=== PATIENT | male | born 1940 | race Caucasian/White ===

== ENCOUNTER 2017-01-23 23:12 | Observation (INO) ==
[2017-01-23] MEDS ORDERED: Aspirin 81 MG TAB.CHEW PO ONE (23:59)
[2017-01-24 00:02] LABS: Basophils % 0.6 %; Eosinophils # 0.1 K/mcL (0.0-0.6); Eosinophils % 1.6 %; Hematocrit 41.8 % (37.5-50.1); Hemoglobin 13.4 g/dL (12.9-16.9); Immature Granulocytes % 0.2 % (0-4); Lymphocytes # 0.9 K/mcL (0.6-4.6); Lymphocytes % 18.5 %; Mean Corpuscular HGB Conc 32.1 g/dL (31.6-35.5); Mean Corpuscular Hemoglobin 26.3 pg (28.0-33.3); Mean Platelet Volume 11.2 fL (9.4-12.4); Monocytes # 0.7 K/mcL (0.0-1.3); Monocytes % 14.3 %; Neutrophils # 3.2 K/mcL (1.6-8.9); Platelet Count 162 K/mcL (140-400); Red Cell Distribution Width 13.5 % (11.5-14.5); Segmented Neutrophils % 64.8 %
[2017-01-24] MEDS: Ipratropium/Albuterol Neb 3 ML IH ONE ×2 (00:02→00:11)
--- NOTE | 2017-01-24 00:02 | Emergency Department Note ---
Disposition Clinical Impression: ST segment changes on electrocardiogram Dyspnea Qualifiers: Dyspnea type: shortness of breath Qualified Code(s): R06.02 - Shortness of breath Disposition: Admitted As Inpatient Condition: Fair Referrals: NO,PCP [Primary Care Provider] - Forms: ED Satisfaction Letter SOB HPI - General Chief Complaint: ED Shortness of Breath/Dyspnea Stated Complaint: yovanny Time Seen by Provider: 01/23/17 23:31 Source: patient, family Mode of arrival: wheelchair Limitations: no limitations Nursing Notes Reviewed: Yes Vital Signs Reviewed: Yes - History of Present Illness Pt Subjective Complaint: shortness of breath Onset (ago): day(s) (3) Context: recent illness (cough, congestion) Severity: moderate Consistency/Duration: constant, gradually worsening Improves with: bronchodilators, upright position Worsens with: lying flat, coughing Known history of: COPD Associated symptoms: Reports: fever, cough, wheezing, sputum production, orthopnea, other ("abdomen feels bloated" per patient). Denies: chest pain, pain with inspiration, lower extremity pain, polyuria, polydipsia, parasthesias , palpitations, hemoptysis, diaphoresis, nausea/vomiting, syncope, abdominal pain, rash, sense of impending doom Treatment prior to arrival: oxygen (used his 's oxygen several times this week), bronchodilator Cough present: Yes Cough Description: Involuntary, Productive, Rattling, Wheezy Cough Frequency: Intermittent Sputum production: Yes Sputum Amount: Small Sputum Color: Yellow - Related Data Home oxygen amount: none (borrows 's O2 sometimes) Home Medications Medication Instructions Recorded Confirmed Albuterol Sulfate [Proair Hfa] 1 - 2 puff IH QID PRN 01/18/16 10/04/16 Buspirone HCl [Buspar] 5 mg PO BID 01/18/16 10/04/16 Finasteride [Proscar] 5 mg PO DAILY 01/18/16 10/04/16 Fluticasone Propionate Nasal 100 mcg NS DAILY 01/18/16 10/04/16 [Flonase] Fluticasone/Salmeterol [Advair 1 each IH BID 01/18/16 10/04/16 250-50 Diskus] Gabapentin [Neurontin] 400 mg PO TID 01/18/16 10/04/16 HYDROcodone/Acet 7.5/325 mg [[place] 1 tab PO TID PRN 01/18/16 10/04/16 7.5-325 mg] Levothyroxine [Synthroid] 25 mcg PO DAILY 01/18/16 10/04/16 Loratadine [Claritin] 10 mg PO DAILY PRN 01/18/16 10/04/16 Metformin HCl [Fortamet] 500 mg PO DAILY 01/18/16 10/04/16 Montelukast [Singulair] 10 mg PO DAILY 01/18/16 10/04/16 Omeprazole [PriLOSEC] 40 mg PO DAILY 01/18/16 10/04/16 Polyethylene Glycol 3350 [MiraLAX] 17 gm PO DAILY PRN 01/18/16 10/04/16 Albuterol Neb [Proventil Neb] 2.5 mg IH Q4HR PRN 10/04/16 10/04/16 Cholecalciferol (D-3) [Vitamin D] 1,000 unit PO DAILY 10/04/16 10/04/16 Cyclobenzaprine HCl 5 mg PO TID PRN 10/04/16 10/04/16 Simvastatin [Zocor] 40 mg PO HS 10/04/16 10/04/16 Tamsulosin [Flomax] 0.4 mg PO DAILY 10/04/16 10/04/16 Previous Rx's Medication Instructions Recorded TraMADol [Ultram] 50 mg PO TID PRN #90 tablet 01/20/16 HYDROcodone/Acet 5/325 mg [[place] 2 tab PO Q4H PRN #15 tablet 10/04/16 5-325 mg] Allergies Allergy/AdvReac Type Severity Reaction Status Date / Time hydrocortisone Allergy See Verified 10/04/16 10:40 [From Cortizone-10] Comments All systems ED: reviewed and negative except as stated. Constitutional: Reports: fever. Denies: chills, weakness, weight change, night sweats Eyes: Denies: eye discharge ENT ED: Denies: throat pain, congestion, dysphagia Cardiovascular: Reports: dyspnea on exertion, orthopnea. Denies: chest pain, palpitations, edema, syncope Respiratory: Reports: cough, dyspnea, wheezes, sputum production. Denies: hemoptysis, stridor Gastrointestinal: Denies: abdominal pain, nausea, vomiting, diarrhea, constipation Musculoskeletal: Denies: back pain, joint swelling, arthralgia Integumentary: Denies: rash Past Medical History - Past Medical History Attestation: Yes The following information was validated with the patient. Source: patient Medical history: Reports: arthritis, CHF, COPD, diabetes, hypertension, myocardial infarction Surgical history: Reports: no surgical history, angioplasty/stent Psychiatric history: Reports: anxiety - Social History Smoking Status: Former smoker Smokeless Tobacco Status: No Alcohol use: Reports: none Drug use: Reports: none Physical Exam - General Limitations: no limitations General appearance: alert, in no apparent distress - Head Head exam: atraumatic, normocephalic, normal inspection - Eye Eye exam: Present: normal appearance, PERRL. Absent: scleral icterus, conjunctival injection, periorbital swelling - ENT ENT exam: mucous membranes dry - Neck Neck exam: Present: normal inspection, full ROM, trachea midline. Absent: meningismus - Chest Chest inspection: Present: normal inspection, symmetric chest wall rise. Absent : tenderness - Respiratory Respiratory exam: Present: wheezes, prolonged expiratory phase, other (coarse rhonchi - bilateral). Absent: respiratory distress, stridor, accessory muscle use - Cardiovascular Cardiovascular exam: Present: regular rate, normal rhythm, normal heart sounds - Abdominal Exam Abdominal exam: Present: soft, Non-Tender, distention, normal bowel sounds, hernia (umbilical). Absent: guarding, rebound, rigidity - Extremities Exam Extremities exam: Present: normal inspection, full ROM. Absent: pedal edema, calf tenderness - Back Exam Back exam: Present: normal inspection - Neurological Exam Neurological exam: Present: alert, oriented X3, CN II-XII intact - Psychiatric Psychiatric exam: Present: normal affect, normal mood - Skin Skin exam: Present: warm, dry, intact, normal color Course Course Narrative: Patient presents with two of his sons for evaluation of trouble breathing. He denies pain. He has had a productive cough and has felt feverish. He has a hx of COPD and has used his inhalers more than usual over the past few days. He also mentions abd distension when asked about it. He denies NVD or constipation. He has no Hx of DVT or PE and no risk factors for this. Vitals show low O2 sats and low grade fever. Will check labs, EKG, CXR, and treat symptoms. ECG shows diffuse ST depression - new compared with 01/2016. Patient is unsure if he has had cardiac stents placed or not. He has had stents in legs. PCI shows cath reports from July and Aug but unable to view the reports. Will admit patient for rule out once labs and xray results are back. Case discussed with Dr. Balderas. He has seen the patient and agrees with the assessment and plan. Patient has been accepted for admission by the hospitalist. - Reevaluation(s) Reevaluation #1: Sats better, feeling better, still no pain. Time: 00:39 Vital Signs Temperature 99.7 F H 01/23/17 23:22 Pulse Rate 80 01/23/17 23:22 Respiratory Rate 20 01/23/17 23:22 Blood Pressure 165/82 01/23/17 23:22 O2 Sat by Pulse Oximetry 91 L 01/23/17 23:22 Temperature 99.7 F H 01/23/17 23:22 Pulse Rate 71 01/24/17 00:14 Respiratory Rate 20 01/24/17 00:14 Blood Pressure 139/64 01/24/17 00:14 O2 Sat by Pulse Oximetry 98 01/24/17 00:14 Oxygen Delivery Oxygen Delivery Aerosol Mask Shortness of Breath/Dyspnea - Differential Diagnosis Likely: acute exacerbation of chronic obstructive airways disease, congestive heart failure, pneumonia - Medical Records Medical records reviewed: Yes I reviewed the patient's medical records. - Lab Data Lab results reviewed: Yes I reviewed the patient's lab results. Lab results narrative: Laboratory Last Values WBC 5.0 K/mcL (4.3-11.1) 01/23/17 23:53 RBC 5.10 M/mcL (4.19-5.50) 01/23/17 23:53 Hgb 13.4 g/dL (12.9-16.9) 01/23/17 23:53 Hct 41.8 % (37.5-50.1) 01/23/17 23:53 MCV 82.0 fL (83.0-100.0) L 01/23/17 23:53 MCH 26.3 pg (28.0-33.3) L 01/23/17 23:53 MCHC 32.1 g/dL (31.6-35.5) 01/23/17 23:53 RDW 13.5 % (11.5-14.5) 01/23/17 23:53 Plt Count 162 K/mcL (140-400) 01/23/17 23:53 MPV 11.2 fL (9.4-12.4) 01/23/17 23:53 Immature Gran % 0.2 % (0-4) 01/23/17 23:53 Seg Neutrophils % 64.8 % 01/23/17 23:53 Lymphocytes % 18.5 % 01/23/17 23:53 Monocytes % 14.3 % 01/23/17 23:53 Eosinophils % 1.6 % 01/23/17 23:53 Basophils % 0.6 % 01/23/17 23:53 Neutrophils # 3.2 K/mcL (1.6-8.9) 01/23/17 23:53 Lymphocytes # 0.9 K/mcL (0.6-4.6) 01/23/17 23:53 Monocytes # 0.7 K/mcL (0.0-1.3) 01/23/17 23:53 Eosinophils # 0.1 K/mcL (0.0-0.6) 01/23/17 23:53 Basophils # 0.0 K/mcL (0.0-0.2) 01/23/17 23:53 Immature Plt Fraction 6.0 % (1.1-6.1) 01/23/17 23:53 PT 12.2 Seconds (9.4-12.1) H 01/23/17 23:53 INR 1.1 01/23/17 23:53 APTT 33.1 Seconds (26.0-36.0) 01/23/17 23:53 Sodium 135 mEq/L (136-145) L 01/23/17 23:53 Potassium 4.6 mEq/L (3.5-4.5) H 01/23/17 23:53 Chloride 100 mEq/L (98-109) 01/23/17 23:53 Carbon Dioxide 27 mEq/L (19-29) 01/23/17 23:53 BUN 13 mg/dL (8-26) 01/23/17 23:53 Creatinine 1.11 mg/dL (0.72-1.25) 01/23/17 23:53 Est GFR ( Amer) > 60 (> 60) 01/23/17 23:53 Est GFR (Non-Af Amer) > 60 (> 60) 01/23/17 23:53 BUN/Creatinine Ratio 12 (6-26) 01/23/17 23:53 Glucose 121 mg/dL (70-99) H 01/23/17 23:53 Calculated Osmolality 281 (280-300) 01/23/17 23:53 Calcium 9.6 mg/dL (8.6-10.8) 01/23/17 23:53 Total Bilirubin 0.5 mg/dL (0.2-1.2) 01/23/17 23:53 Direct Bilirubin 0.2 mg/dL (0.0-0.5) 01/23/17 23:53 Indirect Bilirubin 0.3 mg/dL (0.0-1.2) 01/23/17 23:53 AST 19 Units/L (5-34) 01/23/17 23:53 ALT 18 Units/L (0-55) 01/23/17 23:53 Alkaline Phosphatase 78 Units/L (38-126) 01/23/17 23:53 Troponin I 0.03 ng/mL (0-0.03) 01/23/17 23:53 B-Natriuretic Peptide 23 pg/mL (0-100) 01/23/17 23:53 Serum Total Protein 7.2 g/dL (6.0-8.3) 01/23/17 23:53 Albumin 4.1 g/dL (3.5-5.0) 01/23/17 23:53 Globulin 3.1 g/dL (2.4-3.5) 01/23/17 23:53 Albumin/Globulin Ratio 1.3 (1.1-2.2) 01/23/17 23:53 Result diagrams: 01/23/17 23:53 01/23/17 23:53 Lab Results 01/23/17 01/23/17 01/23/17 Range/Units 23:53 23:53 23:53 WBC 5.0 (4.3-11.1) K/mcL RBC 5.10 (4.19-5.50) M/mcL Hgb 13.4 (12.9-16.9) g/dL Hct 41.8 (37.5-50.1) % MCV 82.0 L (83.0-100.0) fL MCH 26.3 L (28.0-33.3) pg MCHC 32.1 (31.6-35.5) g/dL RDW 13.5 (11.5-14.5) % Plt Count 162 (140-400) K/mcL MPV 11.2 (9.4-12.4) fL Immature Gran % 0.2 (0-4) % Seg Neutrophils % 64.8 % Lymphocytes % 18.5 % Monocytes % 14.3 % Eosinophils % 1.6 % Basophils % 0.6 % Neutrophils # 3.2 (1.6-8.9) K/mcL Lymphocytes # 0.9 (0.6-4.6) K/mcL Monocytes # 0.7 (0.0-1.3) K/mcL Eosinophils # 0.1 (0.0-0.6) K/mcL Basophils # 0.0 (0.0-0.2) K/mcL Immature Plt Fraction 6.0 (1.1-6.1) % PT (9.4-12.1) Seconds INR APTT (26.0-36.0) Seconds Sodium 135 L (136-145) mEq/L Potassium 4.6 H (3.5-4.5) mEq/L Chloride 100 (98-109) mEq/L Carbon Dioxide 27 (19-29) mEq/L BUN 13 (8-26) mg/dL Creatinine 1.11 (0.72-1.25) mg/dL Est GFR ( Amer) > 60 (> 60) Est GFR (Non-Af Amer) > 60 (> 60) BUN/Creatinine Ratio 12 (6-26) Glucose 121 H (70-99) mg/dL Calculated Osmolality 281 (280-300) Calcium 9.6 (8.6-10.8) mg/dL Total Bilirubin 0.5 (0.2-1.2) mg/dL Direct Bilirubin 0.2 (0.0-0.5) mg/dL Indirect Bilirubin 0.3 (0.0-1.2) mg/dL AST 19 (5-34) Units/L ALT 18 (0-55) Units/L Alkaline Phosphatase 78 (38-126) Units/L Troponin I 0.03 (0-0.03) ng/mL B-Natriuretic Peptide (0-100) pg/mL Serum Total Protein 7.2 (6.0-8.3) g/dL Albumin 4.1 (3.5-5.0) g/dL Globulin 3.1 (2.4-3.5) g/dL Albumin/Globulin Ratio 1.3 (1.1-2.2) 01/23/17 01/23/17 Range/Units 23:53 23:53 WBC (4.3-11.1) K/mcL RBC (4.19-5.50) M/mcL Hgb (12.9-16.9) g/dL Hct (37.5-50.1) % MCV (83.0-100.0) fL MCH (28.0-33.3) pg MCHC (31.6-35.5) g/dL RDW (11.5-14.5) % Plt Count (140-400) K/mcL MPV (9.4-12.4) fL Immature Gran % (0-4) % Seg Neutrophils % % Lymphocytes % % Monocytes % % Eosinophils % % Basophils % % Neutrophils # (1.6-8.9) K/mcL Lymphocytes # (0.6-4.6) K/mcL Monocytes # (0.0-1.3) K/mcL Eosinophils # (0.0-0.6) K/mcL Basophils # (0.0-0.2) K/mcL Immature Plt Fraction (1.1-6.1) % PT 12.2 H (9.4-12.1) Seconds INR 1.1 APTT 33.1 (26.0-36.0) Seconds Sodium (136-145) mEq/L Potassium (3.5-4.5) mEq/L Chloride (98-109) mEq/L Carbon Dioxide (19-29) mEq/L BUN (8-26) mg/dL Creatinine (0.72-1.25) mg/dL Est GFR ( Amer) (> 60) Est GFR (Non-Af Amer) (> 60) BUN/Creatinine Ratio (6-26) Glucose (70-99) mg/dL Calculated Osmolality (280-300) Calcium (8.6-10.8) mg/dL Total Bilirubin (0.2-1.2) mg/dL Direct Bilirubin (0.0-0.5) mg/dL Indirect Bilirubin (0.0-1.2) mg/dL AST (5-34) Units/L ALT (0-55) Units/L Alkaline Phosphatase (38-126) Units/L Troponin I (0-0.03) ng/mL B-Natriuretic Peptide 23 (0-100) pg/mL Serum Total Protein (6.0-8.3) g/dL Albumin (3.5-5.0) g/dL Globulin (2.4-3.5) g/dL Albumin/Globulin Ratio (1.1-2.2) - Radiology Data Radiology results reviewed: Yes I reviewed the patient's radiology results. Chest X-Ray 01/23/17 23:31 IMPRESSION: Negative portable chest. D/ / Carlos Smith MD / Carlos Smith MD Interpreting Provider: Carlos Smith MD - EKG Data EKG attestation: Yes I reviewed and interpreted this EKG. EKG shows normal: Reports: sinus rhythm Rate: Reports: normal Rhythm: Reports: NSR [place]/QRS: Reports: normal ST segment depression in: Reports: v4, v5 When compared to previous EKG there are: changes noted Interpretation: Reports: other (New ST depression) - Core Measures AMI Core Measures Followed: Yes Measure Exclusions: not indicated (no pain) Attestation Statement - Attestation Attestation: I examined this patient and my medical decision-making was reviewed with the PA. I agree with the documented findings, disposition and treatment plan as described except to the extent set forth below. Presentation most c/w COPD exacerbation +/- pneumonia. However, pt is a vasculopath and has inferolateral ST depression that is new in some leads and more pronounced in others when compared to prior EKG from a year ago. Diffuse wheezing/rhonchi with decreased BS on right relative to left, no respiratory distress. Treating with nebulizers, ASA given, awaiting CXR/labs. Pt will require admission.
[2017-01-24 00:07] LABS: INR 1.1; Prothrombin Time 12.2 Seconds (9.4-12.1)
[2017-01-24] MEDS ORDERED: Ipratropium/Albuterol Neb 3 ML ONE (00:08)
[2017-01-24 00:10] LABS: Activated Partial Thrombo Time 33.1 Seconds (26.0-36.0)
[2017-01-24 00:16] LABS: Alanine Aminotransferase 18 Units/L (0-55); Albumin 4.1 g/dL (3.5-5.0); Albumin/Globulin Ratio 1.3 (1.1-2.2); Alkaline Phosphatase 78 Units/L (38-126); Aspartate Amino Transferase 19 Units/L (5-34); BUN/Creatinine Ratio 12 (6-26); Bilirubin,Direct 0.2 mg/dL (0.0-0.5); Bilirubin,Indirect 0.3 mg/dL (0.0-1.2); Bilirubin,Total 0.5 mg/dL (0.2-1.2); Blood Urea Nitrogen 13 mg/dL (8-26); Calcium 9.6 mg/dL (8.6-10.8); Carbon Dioxide 27 mEq/L (19-29); Chloride 100 mEq/L (98-109); Globulin 3.1 g/dL (2.4-3.5); Glucose 121 mg/dL (70-99); Osmolality,Calculated 281 (280-300); Potassium 4.6 mEq/L (3.5-4.5); Sodium 135 mEq/L (136-145); Total Protein 7.2 g/dL (6.0-8.3); eGFR For African Americans > 60 (> 60); eGFR For Non-African Americans > 60 (> 60)
[2017-01-24] MEDS ORDERED: Albuterol 2.5 MG/3 ML NEBULIZER IH STA (00:43)
[2017-01-24] MEDS ORDERED: CefTRIAXone 1,000 MG VIAL ONE (03:17)
[2017-01-24] MEDS ORDERED: 0.9 % Sodium Chloride 1,000 ML ONE (03:17)
[2017-01-24] MEDS ORDERED: Azithromycin 500 MG VIAL IVPB ONE (03:17)
[2017-01-24] MEDS ORDERED: D5% in Water (Mini-Bag+) 100 ML IVPB ONE (03:20)
[2017-01-24] MEDS ORDERED: D5% in Water 250 ML ONE (03:21)
[2017-01-24] MEDS ORDERED: Ipratropium/Albuterol Neb 3 ML AER PRN (05:15)
[2017-01-24] MEDS ORDERED: Ondansetron 4 MG/2 ML VIAL IVP PRN (05:16)
[2017-01-24] MEDS ORDERED: *HR* HYDROcodone/Acet 7.5/325 mg TABLET PO PRN (05:16)
[2017-01-24] MEDS ORDERED: *HR* Morphine 2 MG/ML SYRINGE IV PRN (05:16)
[2017-01-24] MEDS ORDERED: Dextrose Gel 15 GM PO PRN ×2 (05:19)
[2017-01-24] MEDS ORDERED: D5% in Water 1,000 ML IV PRN (05:19)
[2017-01-24] MEDS ORDERED: *HR* Dextrose 50 % in Water (Syg) 50 ML SYRINGE IVP PRN (05:19)
[2017-01-24] MEDS: *HR* Heparin 5,000 UNIT/ML VIAL SQ SCH ×2 (05:50→17:43)
[2017-01-24 06:24] LABS: Basophils % 0.6 %; Eosinophils # 0.1 K/mcL (0.0-0.6); Eosinophils % 1.3 %; Hematocrit 37.2 % (37.5-50.1); Hemoglobin 11.8 g/dL (12.9-16.9); Immature Granulocytes % 0.6 % (0-4); Immature Platelets 7.7 % (1.1-6.1); Lymphocytes % 21.6 %; Mean Corpuscular HGB Conc 31.7 g/dL (31.6-35.5); Mean Corpuscular Hemoglobin 26.6 pg (28.0-33.3); Mean Corpuscular Volume 83.8 fL (83.0-100.0); Mean Platelet Volume 12.2 fL (9.4-12.4); Monocytes # 0.5 K/mcL (0.0-1.3); Neutrophils # 3.1 K/mcL (1.6-8.9); Platelet Count 162 K/mcL (140-400); Red Blood Count 4.44 M/mcL (4.19-5.50); Red Cell Distribution Width 13.7 % (11.5-14.5); Segmented Neutrophils % 64.9 %
[2017-01-24 06:29] LABS: Alanine Aminotransferase 16 Units/L (0-55); Alkaline Phosphatase 66 Units/L (38-126); Aspartate Amino Transferase 17 Units/L (5-34); BUN/Creatinine Ratio 10 (6-26); Bilirubin,Total 0.3 mg/dL (0.2-1.2); Blood Urea Nitrogen 16 mg/dL (8-26); Carbon Dioxide 25 mEq/L (19-29); Chloride 100 mEq/L (98-109); Magnesium 1.5 mg/dL (1.6-2.6); Sodium 137 mEq/L (136-145); eGFR For African Americans 51 (> 60); eGFR For Non-African Americans 42 (> 60)
[2017-01-24] MEDS: Insulin LISPRO 300 UNITS/3 ML VIAL SQ SCH ×3 (08:03→17:36)
[2017-01-24] MEDS: Budesonide/Formoterol 80/4.5 MDI IH SCH ×2 (08:06→19:55)
--- NOTE | 2017-01-24 13:23 | ECHO - Doppler Report ---
Echocardiogram Name: Ashkan Turner Date of Study: 01/24/2017 Date: 1940 Ht: 65.0 in Medical Record#: [id number] Age: 76 Wt: 190.0 lb Gender: Male BSA: 1.94 Order #: [id number] Location: [facility] Room #: 3B35 Reading Physician: Moses Reyes MD, [facility] Gyroscopic Instrument Tester: Christopher Olivas RN Ordering Physician: Wily Sun MD Primary Physician: [facility] Indications: Shortness of breath Impressions: Normal left ventricular systolic function, LVEF 60%. Moderate left ventricular diastolic dysfunction. Normal right ventricular size and function. Mildly dilated left atrium. No significant valvular dysfunction. Unable to estimate RVSP due to lack of TR jet. Left Ventricular Wall Motion: Rest Echo Findings All wall segments showed normal motion. Findings: Study Quality * Suboptimal echo windows. ECG Findings * Normal sinus rhythm. Left Ventricle * Normal left ventricular systolic function, LVEF 60%. * Normal LV chamber size and wall thickness. * Moderate left ventricular diastolic dysfunction. Right Ventricle * Normal right ventricular size and function. Left Atrium * Mildly dilated left atrium. Right Atrium * Normal right atrial size. Interatrial Septum * Lipomatous interatrial septum. Aorta * Normally sized aortic root. Pericardium * There is no pericardial effusion present. IVC * The IVC is borderline dilated. Aortic Valve * Aortic valve not well visualized. * No aortic stenosis. * No aortic regurgitation. Mitral Valve * Normal mitral valve structure. * No mitral stenosis. * No mitral regurgitation. Tricuspid Valve * Normal tricuspid valve structure. * No tricuspid stenosis. * Trace tricuspid regurgitation. * Unable to estimate RVSP due to lack of TR jet. Pulmonic Valve * Pulmonic valve not well visualized. * No pulmonic stenosis. * No pulmonic regurgitation. History Hypertension Diabetes Hypercholesteremia Years 25 Packs 2 Family History of CAD Measurements: BP: 111/ 58 2D Normal Values RVIDd: 2.65 cm IVSd: 1.00 cm 0.6 - 1.0 cm LVIDd: 4.89 cm 3.7 - 5.6 cm LVPWd: 1.00 cm 0.6 - 1.1 cm LVIDs: 3.43 cm 1.5 - 3.6 cm AO: 3.20 cm < 4.0 cm %FS: 29.90 cm >25 % LA volume: 69 Mitral Valve Peak E:1.11 m/sec Peak A:1.04 m/sec E/A Ratio:1.1 Updated by Moses Reyes MD, [facility] on 01/24/2017 1:17:43 PM electronically signed on 01/24/2017 1:18:24 PM with status of Final Wall Motion Ocoper: 1=Normal, 2=Hypokinesis, 3=Akinesis, 4=Dyskinesis, 5=Aneurysmal, 6=Hyperkinetic, X=Not Visualized (Blank)=Missing
--- NOTE | 2017-01-24 15:26 | Internal Med Progress Note ---
Date of Encounter: 01/24/17 Time of Encounter: 09:30 - Assessment and plan (1) COPD exacerbation Current Visit: Yes Status: Acute Assessment and plan: Patient stating shortness of breath is improving. On examination, patient with coarse breath sounds throughout and a wet cough. Will add mucolytic's, duonebs , and PO prednisone. (2) Chronic pain Current Visit: Yes Status: Chronic Assessment and plan: Patient stating he has chronic pain to his hips and his back. He states that he just recently left his old primary care provider approximately 2 months ago because she gradually weaned him off his pain medication and made him go see a pain specialist who insisted upon injecting him rather than giving him pills. He states he has a new primary care provider who is also a pain management provider in [place]. He does not know the name of this PCP. He is requesting pain medication for his chronic pain, he was informed that he will need to follow up outpatient for chronic issues. (3) ST segment changes on electrocardiogram Current Visit: Yes Status: Chronic Assessment and plan: Nonacute (4) CAD (coronary artery disease) Current Visit: No Status: Chronic Assessment and plan: Patient has denied chest pain since admission. (5) Chronic kidney disease, stage II (mild) Current Visit: No Status: Chronic Assessment and plan: Consistent with his baseline. Patient fluctuates between normal renal functioning and stage II. We will continue to trend. (6) Diabetes mellitus Current Visit: No Status: Chronic Assessment and plan: Controlled with a recent A1c of 6.4%. Continue sliding scale while admitted. Qualifiers: Diabetes mellitus type: type 2 Diabetes mellitus complication status: without complication Diabetes mellitus extermination inspector insulin use: without fpc use Qualified Code(s): E11.9 - Type 2 diabetes mellitus without complications (7) Hyperkalemia Current Visit: No Status: Acute Assessment and plan: Likely resolve, will recheck in a.m. (8) Elevated troponin Current Visit: Yes Status: Resolved Assessment and plan: Mildly elevated at 0.05 and trended back down to 0.04. Patient has denied chest pain since admission. Do not suspect ACS. - Subjective Interval history: Patient seen and examined. On examination, patient is sitting upright on the side of his bed eating breakfast. He complains of pain into his hips and legs that he states is normal for him. He states his shortness of breath is improving. He is requesting pain medication. - Constitutional Vitals: Temp Pulse Resp BP Pulse Ox 98.7 F 69 16 136/69 92 L 01/24/17 15:03 01/24/17 15:03 01/24/17 15:03 01/24/17 15:03 01/24/17 15:03 General appearance: Present: mild distress, A&O X 3, pleasant, answers questions appropriately - Head Head exam: Present: atraumatic, normocephalic - Eye Eye exam: Present: PERRL, conjuntiva pink, sclera anicteric Pupils: Present: PERRL - Neck Neck exam general surgery: Present: supple, trachea midline. Absent: lymphadenopathy - Respiratory Respiratory exam: Present: accessory muscle use, decreased breath sounds, respiratory distress, rhonchi. Absent: rales, wheezes - Cardiovascular Cardiovascular exam: Present: RRR, +S1, +S2. Absent: diastolic murmur, gallop, rubs, systolic murmur - GI/Abdominal GI/Abdominal exam: Present: normal bowel sounds, soft, no peritoneal signs. Absent: distended, tenderness - Extremities Exam Extremities exam: Present: warm, radial pulses palpable and symetrical. Absent : calf tenderness, cyanotic, pedal edema - Neurological Exam Neurological exam: Present: alert, CN II-XII intact, oriented X3, no focal deficits, strengths equal and symetr throughout. Absent: pronater drift, facial droop, speech deficit - Skin Skin exam: Present: dry, intact, normal color, warm Internal Medicine: Result - Labs CBC & Chem 7: 01/24/17 04:00 01/24/17 04:00 Labs: Short CBC 01/24/17 Range/Units 04:00 WBC 4.7 (4.3-11.1) K/mcL Hgb 11.8 L D (12.9-16.9) g/dL Hct 37.2 L (37.5-50.1) % Plt Count 162 (140-400) K/mcL Neutrophils # 3.1 (1.6-8.9) K/mcL BMP 01/24/17 04:00 Sodium 137 Chloride 100 Carbon Dioxide 25 BUN 16 Creatinine 1.62 H Calcium 9.0 Cardiac Enzymes 01/24/17 01/24/17 Range/Units 04:00 09:25 Troponin I 0.05 H* 0.04 H* (0-0.03) ng/mL Liver Function 01/24/17 Range/Units 04:00 Total Bilirubin 0.3 (0.2-1.2) mg/dL AST 17 (5-34) Units/L ALT 16 (0-55) Units/L Alkaline Phosphatase 66 (38-126) Units/L - ABG Interpretation ABG results: PT/INR, D-dimer PT 12.2 Seconds (9.4-12.1) H 01/23/17 23:53 Consult Discharge Plan - Plan Referrals: NO,PCP [Primary Care Provider] -
[2017-01-24] MEDS: Ipratropium/Albuterol Neb 3 ML IH SCH ×2 (16:33→19:55)
[2017-01-24] MEDS: predniSONE 20 MG TABLET PO SCH (17:42)
--- NOTE | 2017-01-24 19:20 | Electrocardiograph Report ---
[place] [address] Test Date: 2017-01-23 Pat Name: Ashkan Turner Department: 104 Room: 3B Gender: M Prototyper: : 1940 Requested By: Naa Gee Order Number: [id number] Reading MD: Michael Roldan MD Measurements Intervals Elliott Rate: 77 P: 71 OR: 157 QRS: 85 QRSD: 96 T: 70 QT: 337 QTc: 369 Interpretive Statements SINUS RHYTHM WITH PACS Electronically Signed On 01-24-2017 19:18:34 EST by Michael Roldan MD
[2017-01-24] MEDS ORDERED: Insulin LISPRO 300 UNITS/3 ML VIAL SQ SCH (21:00)
[2017-01-24] MEDS: traMADol 50 MG TABLET PO PRN (21:13)
[2017-01-24] MEDS: *HR* HYDROcodone/Acet 7.5/325 mg TABLET PO PRN (23:58)
[2017-01-25] MEDS: Ipratropium/Albuterol Neb 3 ML IH SCH ×4 (00:14→11:31)
[2017-01-25] MEDS ORDERED: Azithromycin 500 MG in D5% in Water 250 ML IVPB SCH (03:00)
[2017-01-25] MEDS: traMADol 50 MG TABLET PO PRN (04:37)
[2017-01-25 05:07] LABS: BUN/Creatinine Ratio 20 (6-26); Blood Urea Nitrogen 23 mg/dL (8-26); Carbon Dioxide 23 mEq/L (19-29); Chloride 100 mEq/L (98-109); Glucose 224 mg/dL (70-99); Osmolality,Calculated 285 (280-300); Sodium 132 mEq/L (136-145); eGFR For African Americans > 60 (> 60); eGFR For Non-African Americans > 60 (> 60)
[2017-01-25] MEDS: *HR* Heparin 5,000 UNIT/ML VIAL SQ SCH (06:16)
[2017-01-25 07:24] VITALS: BP 112/55
[2017-01-25] MEDS: Budesonide/Formoterol 80/4.5 MDI IH SCH (07:56)
[2017-01-25] MEDS: predniSONE 20 MG TABLET PO SCH (08:10)
[2017-01-25] MEDS: Insulin LISPRO 300 UNITS/3 ML VIAL SQ SCH ×2 (08:11→12:25)
[2017-01-25] MEDS: *HR* HYDROcodone/Acet 7.5/325 mg TABLET PO PRN (08:19)
--- NOTE | 2017-01-25 13:32 | Discharge Summary ---
Date of Encounter: 01/25/17 Time of Encounter: 10:30 - Discharge Diagnosis (1) COPD exacerbation Priority: Primary Status: Resolved Comments: Patient denies shortness of breath above his normal day of discharge, follow-up outpatient (2) Chronic pain Priority: Secondary Status: Chronic Comments: Patient continually brought up his chronic pain and requested pain meds continually during this admission. In review of his [facility] report, he was written 30 day supply of tramadol and 01/16/17. Follow up outpatient for chronic pain management. (3) ST segment changes on electrocardiogram Priority: Secondary Status: Chronic Comments: Nonacute, follow-up outpatient (4) CAD (coronary artery disease) Priority: Secondary Status: Chronic (5) Chronic kidney disease, stage II (mild) Priority: Secondary Status: Chronic Comments: Consistent with his baseline. Patient fluctuates between normal renal functioning and stage II. Normal functioning on day of discharge, follow-up outpatient (6) Diabetes mellitus Priority: Secondary Status: Chronic Comments: Controlled with a recent A1c of 6.4%. Follow-up outpatient Qualifiers: Diabetes mellitus type: type 2 Diabetes mellitus complication status: without complication Diabetes mellitus ad terminal makeup operator insulin use: without correction use Qualified Code(s): E11.9 - Type 2 diabetes mellitus without complications (7) Hyperkalemia Priority: Primary Status: Acute Comments: Recommend further follow-up and trending outpatient and possible changing his lisinopril to another class at the discretion of his primary care team (8) Elevated troponin Priority: Primary Status: Resolved Comments: Adynamic, mild, trended back down. Suspect demand ischemia. Mild acute kidney injury while admitted that resolved. Do not suspect ACS. Clinical presentation more consistent with COPD exacerbation. - Discharge Medications Prescriptions: GuaiFENesin ER [Mucinex] 600 mg PO BID #10 tbbp.12hr Levofloxacin 750 mg PO DAILY #5 tablet PredniSONE 40 mg PO DAILY #6 tablet Home Medications: Albuterol Sulfate [Proair Hfa] 1 - 2 puff IH QID PRN 01/18/16 [History] Buspirone HCl [Buspar] 5 mg PO BID 01/18/16 [History] Finasteride [Proscar] 5 mg PO DAILY 01/18/16 [History] Fluticasone Propionate Nasal [Flonase] 100 mcg NS DAILY 01/18/16 [History] Fluticasone/Salmeterol [Advair 250-50 Diskus] 1 each IH BID 01/18/16 [History] Gabapentin [Neurontin] 400 mg PO TID 01/18/16 [History] Levothyroxine [Synthroid] 25 mcg PO DAILY 01/18/16 [History] Loratadine [Claritin] 10 mg PO DAILY PRN 01/18/16 [History] Metformin HCl [Fortamet] 500 mg PO DAILY 01/18/16 [History] Montelukast [Singulair] 10 mg PO DAILY 01/18/16 [History] Omeprazole [PriLOSEC] 40 mg PO DAILY 01/18/16 [History] Polyethylene Glycol 3350 [MiraLAX] 17 gm PO DAILY PRN 01/18/16 [History] TraMADol [Ultram] 50 mg PO TID PRN #90 tablet 01/20/16 [Rx] Albuterol Neb [Proventil Neb] 2.5 mg IH Q4HR PRN 10/04/16 [History] Cholecalciferol (D-3) [Vitamin D] 1,000 unit PO DAILY 10/04/16 [History] Cyclobenzaprine HCl 5 mg PO TID PRN 10/04/16 [History] Simvastatin [Zocor] 40 mg PO HS 10/04/16 [History] Tamsulosin [Flomax] 0.4 mg PO DAILY 10/04/16 [History] Lisinopril [Zestril] 10 mg PO DAILY 01/24/17 [History] GuaiFENesin ER [Mucinex] 600 mg PO BID #10 tbbp.12hr 01/25/17 [Rx] Levofloxacin 750 mg PO DAILY #5 tablet 01/25/17 [Rx] PredniSONE 40 mg PO DAILY #6 tablet 01/25/17 [Rx] Allergies/Adverse Reactions: Allergies hydrocortisone [From Cortizone-10] Allergy (Verified 01/24/17 09:11) See Comments unknown. patient states made sick after back injection Procedures/tests Complete & Pending: Procedures Performed prior 72 hours Category Date Time Status EV echocardiogram Routine Y 01/24/17 07:25 Completed Date of admission: 01/24/17 00:50 Primary care physician: PCP NO Discharging clinician: Yamile Schroeder Anticipated date of discharge: 01/25/17 - Patient Status Disposition: Home, Self-Care Condition: Fair Functional capacity at discharge: independent ambulation Overall status at discharge: patient is back to baseline - Discharge Instructions Instructions: Chronic Obstructive Pulmonary Disease (DC) Follow Up With: NO,PCP [Primary Care Provider] - Additional Instructions: Follow-up with your new primary care provider within one to 2 weeks - Diet and Activity Activity: increase activity as tolerated Diet: diabetic diet, low fat, low cholesterol, low salt diet Hospital course: Mr. Turner is a 76 year old male with past medical history of COPD, diabetes, hypertension, CAD, PVD, remote former tobacco abuse, and diastolic heart failure. Patient presented to the emergency department chief complaint cough, shortness of breath, body aches, low-grade fever 2-3 days. Patient denied nausea vomiting or diarrhea. Workup in the emergency department unremarkable. Chest x-ray negative. EKG with nonspecific ST-T wave changes however not new for this patient. Patient denied chest pain. Initial troponin negative. He was admitted to the hospitalist service for further evaluation and management. He was treated for COPD exacerbation. He initially required supplemental oxygenation but was weaned to room air shortly after admission. He was admitted and observed over the course of 3 days. Clinically on examination, he had crackles right lower lobes and he was also treated for pneumonia with azithromycin and ceftriaxone. He had mild troponin elevation of 0.05 but then trended back down. Likely secondary to demand ischemia as patient had acute kidney injury while admitted that resolved. Blood cultures negative. Echocardiogram revealing ejection fraction of 60% and moderate diastolic dysfunction. Patient stating he was on a diuretic at one time but has since been taken off that. He remained euvolemic on examination throughout this admission and diuretics were not indicated. On day of discharge, he stated that his shortness of breath had returned to his baseline. He endorsed a regular diet well admitted. Of note, patient continued to continually asked for pain medication during this admission. In review of his [facility] report, he had a 30 day supply of tramadol filled on 01/16/17 and he was instructed to follow up with his primary care provider regarding his chronic pain issues. He states he is switching to a new primary care provider because his old primary care provider weaned him off his pain medication and sent him to [facility] painter [facility] grader who wanted to do "injections rather than just giving me pills." Mild hyperkalemia also noted, recommend follow-up outpatient with possible switch from lisinopril to another class. He was discharged home in stable condition with close outpatient follow-up recommended. ITS Impressions Chest X-Ray 01/23/17 23:31 IMPRESSION: Negative portable chest. D/ / Carlos Smith MD / Carlos Smith MD Interpreting Provider: Carlos Smith MD Echocardiogram impression: Normal left ventricular systolic function, LVEF 60%. Moderate left ventricular diastolic dysfunction. Normal right ventricular structure and function. Mildly dilated left atrium. No significant valvular dysfunction. Unable to estimate RVSP due to lack of TR jet. - Time Spent with Patient Total time spent providing and/or coordinating discharge services: - Constitutional Vitals: Temp Pulse Resp BP Pulse Ox 98.0 F 67 16 112/55 98 01/25/17 07:23 01/25/17 07:23 01/25/17 07:56 01/25/17 07:23 01/25/17 08:12 General appearance: Present: A&O X 3, pleasant, no acute distress, answers questions appropriately - Head Head exam: Present: atraumatic, normocephalic - Eye Eye exam: Present: PERRL, conjuntiva pink, sclera anicteric Pupils: Present: PERRL - Neck Neck exam general surgery: Present: supple, trachea midline. Absent: lymphadenopathy - Respiratory Respiratory exam: Present: CTAB. Absent: accessory muscle use, rales, respiratory distress, rhonchi, wheezes - Cardiovascular Cardiovascular exam: Present: RRR, +S1, +S2. Absent: diastolic murmur, gallop, rubs, systolic murmur - GI/Abdominal GI/Abdominal exam: Present: normal bowel sounds, soft, no peritoneal signs. Absent: distended, tenderness - Extremities Exam Extremities exam: Present: warm, radial pulses palpable and symetrical. Absent : calf tenderness, cyanotic, pedal edema - Neurological Exam Neurological exam: Present: alert, CN II-XII intact, normal gait, oriented X3, no focal deficits, strengths equal and symetr throughout. Absent: pronater drift, facial droop, speech deficit - Skin Skin exam: Present: dry, intact, normal color, warm
== END 2017-01-25 14:46 | disposition home or self-care (01) ==
LOC: 3BNU 23:12 → EMEROO 23:12 → 3BNU 01-24 01:02
PROVIDERS: ADMIT Pediatrics; ATTEND Nurse Practitioner Family

== ENCOUNTER 2021-03-10 14:56 | Observation (INO) ==
[2021-03-10 15:56] LABS: Basophils % 0.4 %; Eosinophils # 0.2 K/mcL (0.0-0.6); Eosinophils % 1.8 %; Immature Granulocytes % 0.3 % (0-4); Lymphocytes # 1.2 K/mcL (0.6-4.6); Mean Corpuscular HGB Conc 30.4 g/dL (31.6-35.5); Mean Corpuscular Hemoglobin 26.1 pg (28.0-33.3); Mean Corpuscular Volume 85.8 fL (83.0-100.0); Mean Platelet Volume 10.7 fL (9.4-12.4); Monocytes % 9.4 %; Neutrophils # 8.1 K/mcL (1.6-8.9); Platelet Count 188 K/mcL (140-400); Red Blood Count 5.36 M/mcL (4.19-5.50); Red Cell Distribution Width 13.6 % (11.5-14.5); Segmented Neutrophils % 77.1 %; White Blood Count 10.5 K/mcL (4.3-11.1)
[2021-03-10 16:05] LABS: INR 1.1; Prothrombin Time 12.5 Seconds (9.4-12.1)
[2021-03-10 16:16] LABS: Calcium 9.2 mg/dL (8.6-10.3); Potassium 4.5 mEq/L (3.5-5.1)
[2021-03-10] MEDS ORDERED: 0.9 % Sodium Chloride 1,000 ML IVC ONE ×2 (16:20→16:24)
[2021-03-10 16:24] LABS: Troponin I 0.04 ng/mL (< 0.04)
[2021-03-10] MEDS ORDERED: Azithromycin 500 MG in 0.9 % Sodium Chloride 250 ML IVPB ONE (16:34)
[2021-03-10 17:51] LABS: Bacteria,Urine Few per hpf (None-Few); Bilirubin,Urine Negative (Negative); Blood,Urine Negative (Negative); Clarity,Urine Clear (Clear); Color,Urine Yellow (Yellow); Glucose,Urine (UA) Normal (Normal); Hyaline Casts,Urine Few per lpf (None Seen); Ketones,Urine Negative (Negative); Leukocyte Esterase,Urine Small (Negative); Nitrite,Urine Negative (Negative); Protein,Urine 30 mg/dL (Neg-Trace); RBC,Urine 0-3 per hpf (0-3); Specific Gravity,Urine 1.024 (1.010-1.025); Squamous Epithelial Cell,Urine Few per hpf (None-Few); Urobilinogen,Urine Normal (Normal)
[2021-03-10] MEDS ORDERED: Naloxone 0.4 MG/ML INJ IVP PRN (19:26)
[2021-03-10] MEDS ORDERED: Acetaminophen 325 MG TABLET PO PRN (19:26)
[2021-03-10] MEDS ORDERED: Ondansetron 4 MG/2 ML VIAL IVP PRN (19:26)
[2021-03-10] MEDS ORDERED: 0.9 % Sodium Chloride 500 ML IVC SCH (19:30)
[2021-03-10] MEDS ORDERED: polyethylene glycoL 3350 17 GM POWD.PACK PO PRN (19:35)
[2021-03-10] MEDS ORDERED: *HR* Dextrose 50 % in Water (Vial) 50 ML VIAL IVP PRN (19:37)
[2021-03-10] MEDS ORDERED: Dextrose Gel 15 GM/37.5 ML TUBE PO PRN ×2 (19:37)
[2021-03-10] MEDS ORDERED: D5% in Water 1,000 ML IVC PRN (19:37)
[2021-03-10] MEDS ORDERED: Perflutren Lipid Microsphere 1.3 ML in 0.9 % Sodium Chloride 8.7 ML IVP PRN (19:47)
[2021-03-10] MEDS ORDERED: Aspirin 325 MG TABLET PO ONE (19:57)
[2021-03-10] MEDS: *HR* Heparin 5,000 UNIT/ML VIAL SQ SCH (22:41)
[2021-03-10] MEDS: Insulin LISPRO 300 UNITS/3 ML VIAL SUBQ SCH (23:35)
[2021-03-10] MEDS: Budesonide/Formoterol 160/4.5 1 PUFF INH IH SCH (23:46)
[2021-03-11] MEDS: Levothyroxine 25 MCG TABLET PO SCH (06:08)
[2021-03-11] MEDS: *HR* Heparin 5,000 UNIT/ML VIAL SQ SCH ×3 (06:09→20:16)
[2021-03-11 06:19] LABS: Basophils % 0.4 %; Eosinophils # 0.2 K/mcL (0.0-0.6); Eosinophils % 2.7 %; Hemoglobin 12.8 g/dL (12.9-16.9); Immature Granulocytes % 0.1 % (0-4); Lymphocytes # 1.2 K/mcL (0.6-4.6); Lymphocytes % 15.3 %; Mean Corpuscular HGB Conc 30.5 g/dL (31.6-35.5); Mean Corpuscular Hemoglobin 26.8 pg (28.0-33.3); Mean Corpuscular Volume 87.9 fL (83.0-100.0); Mean Platelet Volume 11.1 fL (9.4-12.4); Monocytes # 0.7 K/mcL (0.0-1.3); Monocytes % 9.1 %; Neutrophils # 5.7 K/mcL (1.6-8.9); Platelet Count 165 K/mcL (140-400); Red Blood Count 4.78 M/mcL (4.19-5.50); Red Cell Distribution Width 13.7 % (11.5-14.5); Segmented Neutrophils % 72.4 %; White Blood Count 7.9 K/mcL (4.3-11.1)
[2021-03-11 06:26] LABS: INR 1.3; Prothrombin Time 14.4 Seconds (9.4-12.1)
[2021-03-11 06:45] LABS: BUN/Creatinine Ratio 30 (6-26); Blood Urea Nitrogen 28 mg/dL (8-23); Calcium 8.5 mg/dL (8.6-10.3); Carbon Dioxide 27 mEq/L (23-29); Chloride 107 mEq/L (98-107); Chol/HDL Ratio 5.5 (0-4.9); Cholesterol 142 mg/dL (< 200); Glucose 118 mg/dL (70-105); HDL Cholesterol 26 mg/dL (40-59); LDL Cholesterol,Calculated 68 mg/dL (< 100); Osmolality,Calculated 297 (280-300); Potassium 4.1 mEq/L (3.5-5.1); Sodium 140 mEq/L (136-145); Triglycerides 242 mg/dL (< 150); eGFR For African Americans > 60 (> 60); eGFR For Non-African Americans > 60 (> 60)
[2021-03-11 07:04] LABS: Folate 20.9 ng/mL (3.0-16.0)
[2021-03-11 07:15] LABS: Thyroid Stimulating Hormone 0.306 mcIU/mL (0.340-5.600)
[2021-03-11] MEDS: Insulin LISPRO 300 UNITS/3 ML VIAL SUBQ SCH ×4 (07:16→21:01)
[2021-03-11] MEDS: Budesonide/Formoterol 160/4.5 1 PUFF INH IH SCH ×2 (07:49→22:31)
[2021-03-11] MEDS: Cefepime HCl 2,000 MG in Water for inj. (sterile) 20 ML IVP SCH ×3 (08:16→23:38)
[2021-03-11] MEDS ORDERED: Azithromycin 500 MG in 0.9 % Sodium Chloride 250 ML IVPB SCH (12:00)
[2021-03-11] MEDS ORDERED: Cyanocobalamin (B-12) 1,000 MCG/ML VIAL IM ONE (13:15)
[2021-03-11] MEDS: Cyanocobalamin (B-12) 1,000 MCG TABLET PO SCH (13:54)
[2021-03-11] MEDS ORDERED: Cefepime HCl 2,000 MG in Water for inj. (sterile) 20 ML IVP ONE (16:34)
[2021-03-12] MEDS: Levothyroxine 25 MCG TABLET PO SCH (05:59)
[2021-03-12] MEDS: *HR* Heparin 5,000 UNIT/ML VIAL SQ SCH ×3 (05:59→21:43)
[2021-03-12] MEDS: Budesonide/Formoterol 160/4.5 1 PUFF INH IH SCH ×2 (07:34→20:15)
[2021-03-12] MEDS: Insulin LISPRO 300 UNITS/3 ML VIAL SUBQ SCH ×4 (07:41→21:44)
[2021-03-12] MEDS: Cefepime HCl 2,000 MG in Water for inj. (sterile) 20 ML IVP SCH ×2 (07:47→14:56)
[2021-03-12] MEDS: Cyanocobalamin (B-12) 1,000 MCG TABLET PO SCH (07:47)
[2021-03-12 10:46] LABS: BUN/Creatinine Ratio 23 (6-26); Blood Urea Nitrogen 17 mg/dL (8-23); Calcium 9.3 mg/dL (8.6-10.3); Carbon Dioxide 26 mEq/L (23-29); Chloride 104 mEq/L (98-107); Glucose 234 mg/dL (70-105); Osmolality,Calculated 297 (280-300); Potassium 3.8 mEq/L (3.5-5.1); Sodium 139 mEq/L (136-145); eGFR For African Americans > 60 (> 60); eGFR For Non-African Americans > 60 (> 60)
[2021-03-12] MEDS: Azithromycin 250 MG TABLET PO SCH (10:54)
[2021-03-12] MEDS: lisinopriL 10 MG TABLET PO SCH (10:54)
[2021-03-12] MEDS ORDERED: Cyanocobalamin (B-12) 1,000 MCG/ML VIAL IM ONE (13:17)
[2021-03-12] MEDS: Gabapentin 400 MG CAPSULE PO SCH ×2 (14:53→21:44)
[2021-03-13] MEDS: Cefepime HCl 2,000 MG in Water for inj. (sterile) 20 ML IVP SCH ×2 (02:06→07:42)
[2021-03-13] MEDS: Levothyroxine 25 MCG TABLET PO SCH ×2 (06:29→07:39)
[2021-03-13] MEDS: *HR* Heparin 5,000 UNIT/ML VIAL SQ SCH (06:29)
[2021-03-13] MEDS: Insulin LISPRO 300 UNITS/3 ML VIAL SUBQ SCH ×2 (07:27→11:39)
[2021-03-13] MEDS: Cyanocobalamin (B-12) 1,000 MCG TABLET PO SCH (07:39)
[2021-03-13] MEDS: Azithromycin 250 MG TABLET PO SCH (07:40)
[2021-03-13] MEDS: lisinopriL 10 MG TABLET PO SCH (07:40)
[2021-03-13] MEDS: Gabapentin 400 MG CAPSULE PO SCH (07:40)
[2021-03-13] MEDS: Budesonide/Formoterol 160/4.5 1 PUFF INH IH SCH (07:51)
[2021-03-13] MEDS ORDERED: Primidone 50 MG TABLET PO SCH (09:00)
[2021-03-13] MEDS ORDERED: Cyanocobalamin (B-12) 1,000 MCG/ML VIAL IM ONE (11:30)
[2021-03-13 14:13] VITALS: BP 145/61
== END 2021-03-13 15:18 | disposition home or self-care (01) ==
LOC: EMEROOARM 14:56 → 3BNU 14:56 → SUATTDRO 19:38 → 3BNU 20:50
PROVIDERS: ADMIT Internal Medicine; ATTEND Internal Medicine